=== PATIENT | female | born 1960 | race Caucasian/White ===

== ENCOUNTER 2017-11-26 11:05 | Emergency (ER) | payer SELFPAY ==
[~2017-11-26] VITALS: Ht 147.3 cm; Wt 89.4 kg
[2017-11-26 11:58] LABS: BASOPHILS % 1.3 % (0.0-2.0); EOSINOPHILS % 0.5 % (0.0-5.0); HEMATOCRIT. 42.4 % (36.0-48.0); HEMOGLOBIN. 13.7 g/dL (12.0-16.0); LYMPHOCYTES % 29.3 % (20.0-50.0); MEAN CORPUSCULAR HEMOGLOBIN 28.2 pg (28.0-32.0); MEAN CORPUSCULAR VOLUME 87.3 fL (81.0-99.0); NEUTROPHILS % 63.9 % (40.0-76.0); RED BLOOD CELL COUNT 4.85 mill/uL (4.2-5.4); RED CELL DISTRIBUTION WIDTH 14.6 % (11.6-14.6)
[2017-11-26 12:05] LABS: CHLORIDE 103 mEq/L (98-107)
[2017-11-26 12:18] LABS: MEAN PLATELET VOLUME 8.3 fl (7.4-10.4); PLATELET 304 x1000/uL (130-400)
[2017-11-26 13:37] LABS: CHLORIDE 104 mEq/L (98-107)
[2017-11-26 14:25] LABS: CLARITY URINE CLEAR (CLEAR); COLOR URINE YELLOW (YELLOW); KETONES URINE NEGATIVE (NEGATIVE); LEUKOCYTE ESTERASE URINE 2+ (NEGATIVE); NITRITE URINE NEGATIVE (NEGATIVE); OCCULT BLOOD URINE NEGATIVE (NEGATIVE); PROTEIN URINE NEGATIVE (NEGATIVE); SPECIFIC GRAVITY URINE 1.011 (1.005-1.030); UROBILINOGEN URINE 0.2 E.U./dL (0.2-1.0)
[2017-11-26] MEDS ORDERED: IOHEXOL-300 100 ML BOTTLE ONE (16:37)
[2017-11-26 17:53] VITALS: BP 174/71
== END 2017-11-26 17:55 | disposition home or self-care (01) ==
LOC: ER 11:05
DX: N39.0 Urinary tract infection, site not specified (principal); E11.9 Type 2 diabetes mellitus without complications; I10 Essential (primary) hypertension; E03.9 Hypothyroidism, unspecified; Z87.19 Personal history of other diseases of the digestive system; Z98.890 Other specified postprocedural states
CPT/HCPCS: 36415; 74177; 80053; 81003; 83605; 83690; 84484; 85025; 85610; 87077; 87086; 87186; 93005; 99285; Q9967

== ENCOUNTER 2020-03-05 14:59 | Emergency (ER) | payer MEDICAID ==
[~2020-03-05] VITALS: Ht 149.9 cm; Wt 83.0 kg
[2020-03-05 15:07] VITALS: BP 145/54
[2020-03-05 16:28] LABS: BASOPHILS % 0.7 % (0.0-2.0); HEMATOCRIT. 39.7 % (36.0-48.0); HEMOGLOBIN. 13.1 g/dL (12.0-16.0); LYMPHOCYTES % 33.7 % (20.0-50.0); MEAN CORPUSCULAR HEMOGLOBIN 28.3 pg (28.0-32.0); MEAN CORPUSCULAR VOLUME 85.7 fL (81.0-99.0); MONOCYTES % 11.2 % (2.0-8.0); NEUTROPHILS % 49.4 % (40.0-76.0); PLATELET 271 x1000/uL (130-400); RED BLOOD CELL COUNT 4.64 mill/uL (4.2-5.4); RED CELL DISTRIBUTION WIDTH 13.9 % (11.6-14.6)
[2020-03-05 16:32] LABS: CHLORIDE 105 mEq/L (98-107)
[2020-03-05 17:15] LABS: CLARITY URINE CLEAR (CLEAR); COLOR URINE YELLOW (YELLOW); KETONES URINE 1+ (NEGATIVE); LEUKOCYTE ESTERASE URINE 2+ (NEGATIVE); NITRITE URINE NEGATIVE (NEGATIVE); OCCULT BLOOD URINE NEGATIVE (NEGATIVE); PH URINE 5.5 (4.5-8.0); PROTEIN URINE NEGATIVE (NEGATIVE); SPECIFIC GRAVITY URINE 1.018 (1.005-1.030)
== END 2020-03-05 19:36 | disposition home or self-care (01) ==
LOC: ER 14:59
DX: N39.0 Urinary tract infection, site not specified (principal); E11.9 Type 2 diabetes mellitus without complications; I10 Essential (primary) hypertension; Z98.890 Other specified postprocedural states
CPT/HCPCS: 36415; 74177; 80048; 80076; 81003; 84484; 85025; 93005; 99285

== ENCOUNTER 2021-02-18 16:30 | Inpatient (IN) | payer MEDICAID ==
[~2021-02-18] VITALS: Ht 149.9 cm; Wt 87.1 kg
[2021-02-18] MEDS ORDERED: ACETAMINOPHEN 325MG TABLET PO ONE (17:15)
[2021-02-18 17:31] LABS: BASOPHILS % 0.8 % (0.0-2.0); EOSINOPHILS % 0.1 % (0.0-5.0); HEMATOCRIT. 42.1 % (36.0-48.0); HEMOGLOBIN. 13.6 g/dL (12.0-16.0); LYMPHOCYTES % 19.8 % (20.0-50.0); MEAN CORPUSCULAR HEMOGLOBIN 28.1 pg (28.0-32.0); MEAN CORPUSCULAR VOLUME 86.8 fL (81.0-99.0); MEAN PLATELET VOLUME 7.7 fl (7.4-10.4); MONOCYTES % 3.9 % (2.0-8.0); NEUTROPHILS % 75.4 % (40.0-76.0); PLATELET 329 x1000/uL (130-400); RED BLOOD CELL COUNT 4.85 mill/uL (4.2-5.4); RED CELL DISTRIBUTION WIDTH 14.6 % (11.6-14.6)
[2021-02-18 17:35] LABS: CHLORIDE 104 mEq/L (98-107)
[2021-02-19 06:25] VITALS: BP 121/73
[2021-02-19] MEDS ORDERED: BUPIVACAINE HCL/PF 0.5% (5MG/ML) 10ML ONE ×2 (07:57→07:58)
[2021-02-19] MEDS ORDERED: SKIN ADHESIVE 0.7 GM EA TOP ONE (07:57)
[2021-02-19 07:58] VITALS: BP 122/49
[2021-02-19] MEDS ORDERED: PROPOFOL 200MG/20ML VIAL IV ONE ×2 (08:07→09:24)
[2021-02-19] MEDS ORDERED: ROCURONIUM BROMIDE 10MG/ML VIAL 5ML IV ONE (08:07)
[2021-02-19] MEDS ORDERED: FENTANYL CITRATE/PF 50MCG/ML 2ML VIAL ONE (08:07)
[2021-02-19] MEDS ORDERED: NEOSTIGMINE METHYLSULFATE 1MG/ML 10 ML VIAL ONE (08:07)
[2021-02-19] MEDS ORDERED: PHENYLEPHRINE HCL 10 MG/ML 1ML (IV VIAL) IV ONE (08:07)
[2021-02-19] MEDS ORDERED: GLYCOPYRROLATE 0.2 MG/ML 2ML VIAL ONE (08:07)
[2021-02-19] MEDS ORDERED: MIDAZOLAM HCL 2 MG/2 ML VIAL ONE (08:07)
[2021-02-19] MEDS ORDERED: CEFAZOLIN SODIUM 1000MG/VIAL ONE (08:08)
[2021-02-19] MEDS ORDERED: ONDANSETRON HCL 4MG/2ML INJ ONE (08:08)
[2021-02-19] MEDS ORDERED: SODIUM CHLORIDE 0.9% 10ML VIAL ONE (08:08)
[2021-02-19] MEDS ORDERED: SUCCINYLCHOLINE CHLORIDE 200MG/10ML IV ONE (08:08)
[2021-02-19] MEDS ORDERED: METOCLOPRAMIDE HCL 10MG/2ML VIAL ONE (08:08)
[2021-02-19] MEDS ORDERED: MEPERIDINE HCL/PF 25MG/ML CPJ IV PRN ×2 (08:30)
[2021-02-19] MEDS ORDERED: ONDANSETRON HCL 4MG/2ML INJ IV PRN ×2 (08:30→11:30)
[2021-02-19] MEDS ORDERED: SODIUM CHLORIDE 0.9% 1,000 ML IV ONE (08:30)
[2021-02-19] MEDS ORDERED: MORPHINE SULFATE 2 MG/ML CPJ (NOT FOR IM USE) IV PRN ×3 (08:30→11:30)
[2021-02-19] MEDS ORDERED: HYDROCODONE/ACETAMINOPHEN 5/325MG TABLET PO PRN ×2 (11:30)
[2021-02-19] MEDS: HYDROMORPHONE HCL/PF 2MG/ML CPJ IV PRN ×2 (12:00→12:24)
[2021-02-19] MEDS: SODIUM CHLORIDE 0.9% INJ 3ML FLUSH IVF SCH ×2 (13:43→20:57)
[2021-02-19] MEDS: DEXT 5%/0.45% NACL KCL 20MEQ/L 1,000 ML IV SCH ×2 (13:45→20:57)
[2021-02-19 16:00] VITALS: BP 107/37
[2021-02-19 20:00] VITALS: BP 129/45
[2021-02-19] MEDS ORDERED: ACETAMINOPHEN 325MG TABLET PO PRN (20:15)
[2021-02-20] VITALS: BP 82/28
[2021-02-20 01:12] LABS: *AMPHETAMINES SCREEN URINE NEGATIVE (NEGATIVE); *BARBITURATES SCREEN URINE NEGATIVE (NEGATIVE); *BENZODIAZEPINES SCREEN URINE PRESUMTIVE POSITIVE (NEGATIVE); *COCAINE SCREEN URINE NEGATIVE (NEGATIVE); METHADONE URINE SCREEN NEGATIVE (NEGATIVE); OPIATES URINE SCREEN PRESUMTIVE POSITIVE (NEGATIVE)
[2021-02-20 01:13] LABS: CANNABINOID URINE SCREEN NEGATIVE (NEGATIVE); PHENCYCLIDINE URINE SCREEN NEGATIVE (NEGATIVE)
[2021-02-20] MEDS ORDERED: SODIUM CHLORIDE 0.9% 500 ML IV ONE (01:30)
[2021-02-20 04:00] VITALS: BP 123/54
[2021-02-20] MEDS: SODIUM CHLORIDE 0.9% INJ 3ML FLUSH IVF SCH (06:21)
[2021-02-20 08:00] VITALS: BP 118/42
[2021-02-20] MEDS: DEXT 5%/0.45% NACL KCL 20MEQ/L 1,000 ML IV SCH (09:39)
[2021-02-20 11:16] VITALS: BP 118/42
[2021-02-20 12:00] VITALS: BP 123/49
== END 2021-02-20 12:52 | disposition home or self-care (01) | DRG 227 ==
LOC: ER 16:30 → MICUSO 22:13 → ENRESERV 02-19 02:51 → 6EST 02-19 03:18
PROVIDERS: ADMIT Internal Medicine; ATTEND Internal Medicine
PROC: 0WUF0JZ Supplement Abdominal Wall with Synthetic Substitute, Open Approach (ICD-10-PCS; principal; 2021-02-19)
DX: K43.6 Other and unspecified ventral hernia with obstruction, without gangrene (principal); E03.9 Hypothyroidism, unspecified; E11.9 Type 2 diabetes mellitus without complications; I10 Essential (primary) hypertension; Z20.822 Contact with and (suspected) exposure to COVID-19; E66.9 Obesity, unspecified; Z68.38 Body mass index [BMI] 38.0-38.9, adult
CPT/HCPCS: 36415; 74176; 80048; 80305; 82962; 85025; 87426; 88302; 99285; C1781; J0330; J0690; J1170; J2250; J2370; J2405; J2704; J2710; J2765; J3010; J3490

== ENCOUNTER 2021-03-07 16:37 | Emergency (ER) | payer MEDICAID ==
[~2021-03-07] VITALS: Ht 149.9 cm; Wt 81.0 kg
[2021-03-07 20:00] VITALS: BP 163/86
== END 2021-03-07 20:00 | disposition home or self-care (01) ==
LOC: ER 16:37
DX: T84.019A Broken internal joint prosthesis, unspecified site, initial encounter (principal); E11.9 Type 2 diabetes mellitus without complications; I10 Essential (primary) hypertension; Z86.39 Personal history of other endocrine, nutritional and metabolic disease; Z98.890 Other specified postprocedural states
CPT/HCPCS: 99281

== ENCOUNTER 2024-05-12 17:50 | Emergency (ER) | payer SELFPAY ==
[~2024-05-12] VITALS: Ht 144.8 cm; Wt 81.6 kg
[~2024-05-12 17:50] MED LIST: CEPH500T MT
[2024-05-12 17:51] VITALS: O2SAT 99
[2024-05-12 17:55] VITALS: TEMP 36.8; O2SAT 98
[2024-05-12 19:25] LABS: CLARITY URINE CLOUDY (CLEAR); COLOR URINE YELLOW (YELLOW); GLUCOSE URINE NEGATIVE (NEGATIVE); KETONES URINE TRACE (NEGATIVE); LEUKOCYTE ESTERASE URINE 3+ (NEGATIVE); NITRITE URINE NEGATIVE (NEGATIVE); OCCULT BLOOD URINE NEGATIVE (NEGATIVE); PROTEIN URINE NEGATIVE (NEGATIVE); SPECIFIC GRAVITY URINE 1.008 (1.005-1.030); UROBILINOGEN URINE 0.2 E.U./dL (0.2-1.0)
[2024-05-12 19:34] VITALS: BP 193/74; PULSE 84; RESP 18
[2024-05-12] MEDS: AMLODIPINE 10MG TABLET PO ONE (19:34)
[2024-05-12] MEDS: KETOROLAC 30MG/ML VIAL IM ONE (19:34)
[2024-05-12 19:43] LABS: BACTERIA URINE 2+; RBC URINE 0-2 /hpf (0-2); SQUAMOUS EPITHELIAL CELL URINE 1+ /lpf (RARE/1+)
[2024-05-12 20:39] LABS: BASOPHILS % 0.7 % (0.0-2.0); EOSINOPHILS % 2.2 % (0.0-5.0); HEMATOCRIT. 39.7 % (36.0-48.0); HEMOGLOBIN. 13.2 g/dL (12.0-16.0); LYMPHOCYTES % 43.1 % (20.0-50.0); MEAN CORPUSCULAR HEMOGLOBIN 29.4 pg (28.0-32.0); MEAN CORPUSCULAR HGB CONC 33.4 g/dL (31.0-37.0); MEAN PLATELET VOLUME 8.3 fl (7.4-10.4); PLATELET 288 x1000/uL (130-400); RED BLOOD CELL COUNT 4.51 mill/uL (4.2-5.4); RED CELL DISTRIBUTION WIDTH 13.5 % (11.6-14.6); WHITE BLOOD COUNT 8.9 x1000/uL (4.5-11.0)
[2024-05-12 20:41] LABS: CARBON DIOXIDE 25 mEq/L (21-32); CHLORIDE 103 mEq/L (98-107); SODIUM 138 mEq/L (136-145)
[2024-05-12 20:42] LABS: CALCIUM 9.8 mg/dL (8.7-10.4)
[2024-05-12 20:46] LABS: CREATININE 0.7 mg/dL (0.6-1.0)
[2024-05-12 20:47] LABS: GLUCOSE 95 mg/dL (70-105); UREA NITROGEN BLOOD 13 mg/dL (9-23)
[2024-05-12 20:48] LABS: ALANINE AMINOTRANSFERASE 14 IU/L (10-49); ASPARTATE AMINOTRANSFERASE 15 IU/L (<34)
[2024-05-12 20:49] LABS: ALBUMIN 4.3 g/dL (3.2-4.8); BILIRUBIN DIRECT 0.1 mg/dL (<=3.0); BILIRUBIN TOTAL 0.4 mg/dL (0.1-1.0)
[2024-05-12 20:50] LABS: TROPONIN I HIGH SENSITIVITY < 4 ng/L (3.0-34)
[2024-05-12] MEDS ORDERED: CEPH500C2 MT (21:09)
== END 2024-05-12 21:37 | disposition home or self-care (01) ==
LOC: ER 17:50
DX: N39.0 Urinary tract infection, site not specified (principal); I10 Essential (primary) hypertension; E03.9 Hypothyroidism, unspecified; E11.9 Type 2 diabetes mellitus without complications; Z98.890 Other specified postprocedural states; Z79.899 Other long term (current) drug therapy
CPT/HCPCS: 99285; 74176; 71045; 80076; 80048; 81003; 82962; 83690; 85025; 84484; 36415; 93005; 96372; J1885

== ENCOUNTER 2024-06-04 11:44 | Inpatient (IN) | payer SELFPAY ==
[~2024-06-04] VITALS: Ht 149.9 cm; Wt 81.2 kg
[~2024-06-04 11:44] MED LIST changes: +CEPH500C2 MT
[2024-06-04] MEDS: DILTIAZEM HCL 125 MG in DEXT 5% WATER 100 ML IV ONE ×2 (12:15→20:05)
[2024-06-04 12:32] LABS: BASOPHILS % 0.8 % (0.0-2.0); EOSINOPHILS % 1.3 % (0.0-5.0); HEMATOCRIT. 40.7 % (36.0-48.0); HEMOGLOBIN. 12.8 g/dL (12.0-16.0); LYMPHOCYTES % 19.1 % (20.0-50.0); MEAN CORPUSCULAR HEMOGLOBIN 27.4 pg (28.0-32.0); MEAN CORPUSCULAR HGB CONC 31.4 g/dL (31.0-37.0); MEAN CORPUSCULAR VOLUME 87.4 fL (81.0-99.0); MEAN PLATELET VOLUME 8.3 fl (7.4-10.4); MONOCYTES % 7.6 % (2.0-8.0); NEUTROPHILS % 71.2 % (40.0-76.0); PLATELET 293 x1000/uL (130-400); RED BLOOD CELL COUNT 4.66 mill/uL (4.2-5.4); RED CELL DISTRIBUTION WIDTH 14.4 % (11.6-14.6); WHITE BLOOD COUNT 14.7 x1000/uL (4.5-11.0)
[2024-06-04] MEDS: SODIUM CHLORIDE 0.9% 1,000 ML IV ONE (12:39)
[2024-06-04] MEDS: MORPHINE SULFATE 4 MG/ML INJ (FOR IV/IM USE) IV STA (12:42)
[2024-06-04] MEDS: DILTIAZEM HCL 5MG/ML 5ML VIAL IV ONE (12:43)
[2024-06-04] MEDS: ONDANSETRON HCL 4MG/2ML INJ IV STA (12:43)
[2024-06-04 12:45] LABS: CHLORIDE 108 mEq/L (98-107); POTASSIUM 3.7 mEq/L (3.5-5.1); SODIUM 141 mEq/L (136-145)
[2024-06-04 12:46] LABS: CALCIUM 9.9 mg/dL (8.7-10.4); CARBON DIOXIDE 23 mEq/L (21-32)
[2024-06-04 12:51] LABS: CREATININE 0.7 mg/dL (0.6-1.0); GLUCOSE 123 mg/dL (70-105); UREA NITROGEN BLOOD 25 mg/dL (9-23)
[2024-06-04 12:53] LABS: ALANINE AMINOTRANSFERASE 26 IU/L (10-49); ALBUMIN 4.4 g/dL (3.2-4.8); ASPARTATE AMINOTRANSFERASE 23 IU/L (<34); BILIRUBIN DIRECT 0.2 mg/dL (<=3.0); BILIRUBIN TOTAL 0.7 mg/dL (0.1-1.0)
[2024-06-04 12:54] LABS: PROTHROMBIN TIME 10.9 sec (9.6-11.0)
[2024-06-04 15:34] LABS: CLARITY URINE CLEAR (CLEAR); COLOR URINE YELLOW (YELLOW); GLUCOSE URINE NEGATIVE (NEGATIVE); KETONES URINE 1+ (NEGATIVE); LEUKOCYTE ESTERASE URINE 1+ (NEGATIVE); NITRITE URINE NEGATIVE (NEGATIVE); OCCULT BLOOD URINE NEGATIVE (NEGATIVE); PH URINE 5.5 (4.5-8.0); PROTEIN URINE NEGATIVE (NEGATIVE); SPECIFIC GRAVITY URINE 1.062 (1.005-1.030); UROBILINOGEN URINE 0.2 E.U./dL (0.2-1.0)
[2024-06-04 16:02] LABS: RBC URINE 0-2 /hpf (0-2); SQUAMOUS EPITHELIAL CELL URINE FEW /lpf (RARE/1+); YEAST URINE NONE SEEN
[2024-06-04 16:03] LABS: BACTERIA URINE 1+
[2024-06-04] MEDS ORDERED: ONDANSETRON HCL 4MG/2ML INJ IV PRN (16:30)
[2024-06-04] MEDS ORDERED: ENOXAPARIN 30MG/0.3ML SYR SUBCUT SCH (16:30)
[2024-06-04] MEDS ORDERED: ACETAMINOPHEN 325MG TABLET PO PRN (16:30)
[2024-06-04] MEDS ORDERED: DEXTROSE 50% WATER 50ML SYRINGE IV PRN (16:45)
[2024-06-04] MEDS: IOHEXOL-350 100 ML BOTTLE ONE (16:49)
[2024-06-04] MEDS: BLOOD SUGAR DIAGNOSTIC STRIP TEST SCH (17:00)
[2024-06-04] MEDS: INSULIN LISPRO 100 UNITS/ML SUBCUT SCH (17:00)
[2024-06-04 17:13] LABS: TRIGLYCERIDE 101 mg/dL (0-150)
[2024-06-04 17:14] LABS: LDL CHOLESTEROL 104 mg/dL (5-100)
[2024-06-04 17:15] LABS: CHOLESTEROL 171 mg/dL (<200); HDL CHOLESTEROL 45 mg/dL (>65)
[2024-06-04 17:18] LABS: THYROID STIMULATING HORMONE < 0.10 uIU/mL (0.55-4.78)
[2024-06-04] MEDS: PANTOPRAZOLE SODIUM 40 MG/VIAL IV SCH (18:55)
[2024-06-04] MEDS: ENOXAPARIN 40MG/0.4ML SYR SUBCUT SCH (18:55)
[2024-06-04] MEDS: CEFTRIAXONE 1GM/50ML 50 ML IV SCH (18:56)
[2024-06-04] MEDS: APIXABAN 5 MG TABLET PO SCH (22:41)
[2024-06-04] MEDS: PROPRANOLOL HCL 10MG TABLET PO SCH (22:42)
[2024-06-05] VITALS (13 sets, daily range): BP systolic 119–150; BP diastolic 39–51; PULSE 69–88; RESP 14–26; TEMP 36.6–37.2; O2SAT 93–100
[2024-06-05] MEDS ORDERED: METF-414 MT (01:16)
[2024-06-05] MEDS ORDERED: LEVO100T9 MT (01:16)
[2024-06-05] MEDS: SODIUM CHLORIDE 0.9% 500 ML IV ONE (02:58)
[2024-06-05 10:22] LABS: CARBON DIOXIDE 22 mEq/L (21-32); CHLORIDE 109 mEq/L (98-107); POTASSIUM 4.3 mEq/L (3.5-5.1); SODIUM 141 mEq/L (136-145)
[2024-06-05 10:23] LABS: CALCIUM 9.2 mg/dL (8.7-10.4)
[2024-06-05 10:27] LABS: CREATININE 0.7 mg/dL (0.6-1.0); GLUCOSE 90 mg/dL (70-105)
[2024-06-05 10:28] LABS: UREA NITROGEN BLOOD 15 mg/dL (9-23)
[2024-06-05 10:33] LABS: T4 FREE 2.51 ng/dL (0.89-1.76)
[2024-06-05 12:59] LABS: BASOPHILS % 0.3 % (0.0-2.0); EOSINOPHILS % 3.7 % (0.0-5.0); HEMATOCRIT. 33.9 % (36.0-48.0); LYMPHOCYTES % 38.7 % (20.0-50.0); MEAN CORPUSCULAR HEMOGLOBIN 27.9 pg (28.0-32.0); MEAN CORPUSCULAR HGB CONC 31.8 g/dL (31.0-37.0); MEAN CORPUSCULAR VOLUME 87.7 fL (81.0-99.0); MEAN PLATELET VOLUME 8.6 fl (7.4-10.4); MONOCYTES % 10.9 % (2.0-8.0); NEUTROPHILS % 46.4 % (40.0-76.0); PLATELET 224 x1000/uL (130-400); RED BLOOD CELL COUNT 3.87 mill/uL (4.2-5.4); RED CELL DISTRIBUTION WIDTH 14.2 % (11.6-14.6)
[2024-06-05 13:02] LABS: HEMOGLOBIN. 10.8 g/dL (12.0-16.0)
[2024-06-06] VITALS (7 sets, daily range): BP systolic 112–146; BP diastolic 36–58; PULSE 70–85; RESP 16–24; TEMP 36.2–36.9; O2SAT 92–98
[2024-06-06 06:56] LABS: CHLORIDE 110 mEq/L (98-107); SODIUM 142 mEq/L (136-145)
[2024-06-06 06:57] LABS: CALCIUM 9.2 mg/dL (8.7-10.4); CARBON DIOXIDE 23 mEq/L (21-32)
[2024-06-06 07:02] LABS: CREATININE 0.7 mg/dL (0.6-1.0); GLUCOSE 90 mg/dL (70-105); UREA NITROGEN BLOOD 21 mg/dL (9-23)
[2024-06-06 07:47] LABS: BASOPHILS % 0.3 % (0.0-2.0); EOSINOPHILS % 4.1 % (0.0-5.0); HEMATOCRIT. 35.7 % (36.0-48.0); HEMOGLOBIN. 11.3 g/dL (12.0-16.0); LYMPHOCYTES % 34.7 % (20.0-50.0); MEAN CORPUSCULAR HEMOGLOBIN 28.4 pg (28.0-32.0); MEAN CORPUSCULAR HGB CONC 31.6 g/dL (31.0-37.0); MEAN CORPUSCULAR VOLUME 89.9 fL (81.0-99.0); MEAN PLATELET VOLUME 8.9 fl (7.4-10.4); NEUTROPHILS % 51.9 % (40.0-76.0); PLATELET 171 x1000/uL (130-400); RED BLOOD CELL COUNT 3.97 mill/uL (4.2-5.4); RED CELL DISTRIBUTION WIDTH 14.6 % (11.6-14.6); WHITE BLOOD COUNT 7.9 x1000/uL (4.5-11.0)
[2024-06-06] MEDS ORDERED: APIX5TAB MT (09:51)
[2024-06-06] MEDS: CEFTRIAXONE 1GM/50ML 50 ML IV SCH (18:48)
[2024-06-07] VITALS: PULSE 77; RESP 18; TEMP 36.5; O2SAT 97
[2024-06-07 04:00] VITALS: BP 127/50; PULSE 73; RESP 18; TEMP 36.7; O2SAT 95
[2024-06-07 08:00] VITALS: BP 121/64; PULSE 84; RESP 16; TEMP 35.6; O2SAT 94
[2024-06-07 10:00] VITALS: BP 126/62; PULSE 68; RESP 18; TEMP 36.2; O2SAT 96
== END 2024-06-07 11:50 | disposition home or self-care (01) | DRG 201 ==
LOC: ER 11:44 → EDBEDREQ 12:28 → 5EST 13:45 → EDBEDREQSVC 13:46 → EDBEDREQ 13:46 → 5WST 06-06 12:09
PROVIDERS: ADMIT Internal Medicine; ATTEND Internal Medicine
DX: I48.0 Paroxysmal atrial fibrillation (principal); E05.90 Thyrotoxicosis, unspecified without thyrotoxic crisis or storm; E11.9 Type 2 diabetes mellitus without complications; I10 Essential (primary) hypertension; N39.0 Urinary tract infection, site not specified; R10.84 Generalized abdominal pain; M54.9 Dorsalgia, unspecified; Z82.49 Family history of ischemic heart disease and other diseases of the circulatory system
CPT/HCPCS: 36415; 74177; 80048; 80061; 80076; 81003; 82962; 83036; 83605; 83735; 84439; 84443; 84481; 85025; 93005; 93306; 99285; J0696; J1650; J2270; J2405; J2470; J3490; J7030; J7060; Q9967